=== PATIENT | male | born 1945 | race Caucasian/White ===

== ENCOUNTER → 2017-11-23 | Day surgery (SDC) | payer OTHER, MEDICARE ==
[2017-11-09 11:43] VITALS: BMI 23.0
--- NOTE | 2017-11-10 13:01 | DIAGNOSTIC IMAGING REPORT ---
CHEST 2 VIEWS ROUTINE HISTORY: 71 years-old Male BLADDER STONES, WENT TO LAB FIRST, SEND TO [facility] urinary tract calculi COMPARISON: CT 09/16/2017 TECHNIQUE: PA and lateral views of the chest FINDINGS: Cardiomediastinal and hilar silhouettes are within normal limits. No pneumothorax, pleural effusion, focal airspace consolidation or overt pulmonary edema. Degenerative changes are seen within the shoulders and spine. IMPRESSION: No acute process. The above report was generated using voice recognition software. It may contain grammatical, syntax or spelling errors. Electronically signed by: Aaron Barros M.D. 11/10/2017 12:59 PM Dictated Date/Time: 11/10/2017 12:57 PM
[2017-11-10 13:26] LABS: BASO % 0.4 %; BASO ABS # 0.03 K/uL (0-0.2); EOS % 1.1 %; EOS ABS # 0.09 K/uL (0-0.5); HEMATOCRIT 33.8 % (42-52); HEMOGLOBIN 11.1 g/dL (14.0-18.0); IG# 0.03 K/uL (0.00-0.02); LYMPH % 18.1 %; LYMPH ABS # 1.55 K/uL (1.2-3.4); MEAN CELL VOLUME 95.2 fL (80-100); MEAN CORPUSCULAR HEMOGLOBIN 31.3 pg (25-34); MEAN CORPUSCULAR HGB CONC 32.8 g/dl (32-36); MEAN PLATELET VOLUME 8.9 fL (7.4-10.4); MONO % 11.3 %; MONO ABS # 0.97 K/uL (0.11-0.59); NEUT % 68.7 %; PLATELET COUNT 419 K/uL (130-400); RED CELL DISTRIBUTION WIDTH CV 15.2 % (11.5-14.5); RED CELL DISTRIBUTION WIDTH SD 52.9 fL (36.4-46.3); WHITE BLOOD COUNT 8.57 K/uL (4.8-10.8)
[2017-11-10 13:51] LABS: CALCIUM 8.8 mg/dl (8.5-10.1); CREATININE 1.07 mg/dl (0.60-1.40); POTASSIUM 3.6 mmol/L (3.5-5.1)
[~2017-11-23] VITALS: Ht 175.3 cm; Wt 70.9 kg
[~2017-11-23] MED LIST: ACETAMINOPHEN 325 MG TAB PO PRN; ASCA500 PO; ATROPINE SULFATE 0.1 MG/ML 5ML SYR IV PRN; CHOL1TAB42 PO; CIPR-255 PO; CIPROFLOXACIN / D5W 400 MG IV SCH; DEXAMETHASONE SOD INJ 4 MG/ML VIAL ONE; DPH/ PO; EpHEDrine SULFATE INJ 50 MG/ML AMP IV PRN; EpHEDrine SULFATE INJ 50 MG/ML AMP ONE; FENTANYL CITRATE INJ 50 MCG/1 ML 2 ML VIAL ONE; FERR1TAB23 PO; FIBE1CHW PO; HYDROCODONE/ACETAMIN 5/325MG TAB PO PRN; HYDROmorphone INJ 2 MG/ML SYR/VIAL IV PRN; IMD2X PO; IRON INFUSION IV; LACTATED RINGER'S 1000ML 1,000 ML IV SCH; LIDOCAINE HCL 2% 2 ML VIAL (20MG/ML) ONE; MULT-506 PO; ONDANSETRON INJ 2 MG/ML 2 ML VIAL IV PRN; ONDANSETRON INJ 2 MG/ML 2 ML VIAL ONE; PHEN95TA14 PO; PHENYLEPHRINE 100MCG/ML 5ML SYR IV PRN; PROPOFOL IV EMULSION 10 MG/ML 20 ML VIAL ONE; SAW450CA5 PO; SODIUM CHLORIDE 0.9% 1000ML 1,000 ML IV SCH; TAMSULOSIN HCL 0.4 MG CAP PO ONE; VTMB122500 PO; WHEAPOW13 PO
[2017-11-23 10:29] VITALS: BP 126/72; PULSE 85; TEMP 37; O2SAT 99; Ht 175.3 cm; Wt 70.9 kg
--- NOTE | 2017-11-23 11:36 | History & Physical Bridge Note ---
H&P Re-Evaluation Bridge Note: I have examined the patient, reviewed the History & Physical and in the interval since the performance of the History & Physical I have noted the following changes of clinical significance: No changes noted
--- NOTE | 2017-11-23 13:18 | [facility] Operative Report ---
Operative Report Operative Date November 23, 2017. Pre-Operative Diagnosis Bladder stones Post-Operative Diagnosis Bladder stones Procedure(s) Performed Cystoscopy, cystolitholapaxy Surgeon Dr. Mathur Manager Eligibility Surgeon(s) none Estimated Blood Loss 0 cc Drains None Anesthesia Type General Complication(s) none Disposition yes Recovery Room / PACU Indications Bladder stones Description of Procedure Patient was identified in the preoperative holding area, appropriate informed consents reviewed and completed and the patient was transported to the operating suite. Upon arrival he received appropriate preoperative antibiotics in the form of ciprofloxacin. Adequate general anesthesia was achieved, he was placed in dorsal lithotomy position where he was sterilely prepped and draped in standard fashion. I began the case by passing a 22 Indonesian cystoscope with 30 lens. Inspection of the urethra revealed no evidence of stricture disease. He has a moderately enlarged prostate with relatively high bladder neck. Upon entering the bladder, immediately noticed 3 large, smooth, round stones in the dependent portion of the bladder. There were no other abnormalities of the bladder appreciated, ureteral orifices were identified posterior to the stones. After this inspection, I passed a 600 m laser fiber to begin laser litholapaxy. Successfully fragmented all of the stones and irrigated all the stone debris out of the bladder. Conclusion of the case, I performed repeat inspection with both 30 and 70 lenses, confirming that no large retained fragments persisted. I then emptied his bladder and concluded the case. The patient was extubated and taken to the PACU in stable condition. I attest to the content of the Intraoperative Record and any orders documented therein. Any exceptions are noted below.
--- NOTE | 2017-11-23 13:20 | Discharge Instructions ---
Discharge Instructions Date of Service November 23, 2017. Admission Reason for Admission: Bladder Stones Discharge Discharge Diagnosis / Problem: bladder stones Discharge Goals Goal(s): Decrease discomfort, Improve function, Increase independence, Improve disease control Activity Recommendations Activity Limitations: resume your previous activity Lifting Limitations: none, gradually increase as tolerated Exercise/Sports Limitations: none, gradually increase as tolerated May Resume Sexual Activity: when tolerated Shower/Bathe: no limitations Driving or Machine Use: resume 1 day after discharge . Instructions / Follow-Up Instructions / Follow-Up Please keep youre previously scheduled follow up appointment with Dr. Mathur Current Hospital Diet Patient's current hospital diet: Discharge Diet Recommended Diet: Regular Diet Procedures Procedures Performed: Cystoscopy, cystolitholapaxy Pending Studies Studies pending at discharge: no Medical Emergencies . Who to Call and When: Medical Emergencies: If at any time you feel your situation is an emergency, please call 911 immediately. . Non-Emergent Contact Non-Emergency issues call your: Urologist Call Non-Emergent contact if: you have a fever, temperature is above 101.5, your pain is not controlled, your pain is worsening . . "Provider Documentation" section prepared by Michael Caldera. .
--- NOTE | 2017-11-23 14:07 | Anesthesiology Progress Note ---
Anesthesia Post Op Note Date & Time November 23, 2017 at 14:07 Vital Signs Pain Intensity: 1 Vital Signs Past 12 Hours Date Time Temp Pulse Resp B/P (MAP) Pulse Ox O2 Delivery O2 Flow Rate FiO2 11/23/17 14:04 72 16 115/74 100 Room Air Oxymask 11/23/17 14:00 36 72 16 118/75 100 Room Air Oxymask 11/23/17 13:50 72 20 119/75 100 Room Air Oxymask 11/23/17 13:40 72 12 111/71 100 Oxymask 10 11/23/17 13:30 76 12 110/70 100 Oxymask 10 11/23/17 13:24 36.5 76 14 107/63 100 Oxymask 10 11/23/17 10:29 37 85 16 126/72 (90) 99 Room Air Notes Mental Status: alert / awake / arousable, participated in evaluation Pt Amnestic to Procedure: Yes Nausea / Vomiting: adequately controlled Pain: adequately controlled Airway Patency, RR, SpO2: stable & adequate BP & HR: stable & adequate Hydration State: stable & adequate Anesthetic Complications: no major complications apparent
[2017-11-23 14:10] VITALS: BP 114/71; PULSE 72; TEMP 36.4; O2SAT 100
[2017-11-23 14:40] VITALS: BP 114/74; PULSE 71; TEMP 36.4; O2SAT 100
== END | disposition home or self-care (01) ==
LOC: C.ACU 09:58
PROVIDERS: ATTEND Urology
DX: N21.0 Calculus in bladder (principal); M19.90 Unspecified osteoarthritis, unspecified site; I10 Essential (primary) hypertension; N40.1 Benign prostatic hyperplasia with lower urinary tract symptoms; N13.8 Other obstructive and reflux uropathy; F17.200 Nicotine dependence, unspecified, uncomplicated; Z88.1 Allergy status to other antibiotic agents; Z90.49 Acquired absence of other specified parts of digestive tract; Z82.49 Family history of ischemic heart disease and other diseases of the circulatory system